=== PATIENT | male | born 1955 | race African-American/Black ===

== ENCOUNTER → 2020-02-23 | Day surgery (SDC) | payer MEDICARE, OTHER ==
[2020-02-19 13:21] LABS: BASOPHILS # (AUTO) 0.1 (0.0-0.1); BASOPHILS % 0.8 % (0.0-1.0); EOSINOPHILS # (AUTO) 0.2 (0.0-0.4); EOSINOPHILS % 3.1 % (0.0-6.0); HEMOGLOBIN 12.9 g/dL (14.0-18.0); LYMPHOCYTES # (AUTO) 1.8 (1.0-3.2); LYMPHOCYTES % 28.3 % (18.0-39.1); MEAN CORPUSCULAR HEMOGLOBIN 26.1 pg (28-32); MEAN CORPUSCULAR HGB CONC 30.7 g/dL (31-35); MONOCYTES % 15.2 % (4.4-11.3); NEUTROPHILS # (AUTO) 3.4 (2.1-6.9); NEUTROPHILS % 52.4 % (38.7-80.0); PLATELET COUNT 212 x10e3/uL (140-360); RED BLOOD COUNT 4.94 x10e6/uL (4.3-5.7); RED CELL DISTRIBUTION WIDTH 15.6 % (11.7-14.4)
[2020-02-19 13:54] LABS: ALANINE AMINOTRANSFERASE 16 IU/L (0-55); ALBUMIN 4.1 g/dL (3.5-5.0); ALBUMIN/GLOBULIN RATIO 1.2 (0.8-2.0); ALKALINE PHOSPHATASE 81 IU/L (40-150); ANION GAP 13.8 mmol/L (8-16); BLOOD UREA NITROGEN 14 mg/dL (7-26); BUN/CREATININE RATIO 11 (6-25); CALCIUM 9.9 mg/dL (8.4-10.2); CARBON DIOXIDE 24 mmol/L (22-29); CHLORIDE 107 mmol/L (98-107); CREATININE, SERUM 1.26 mg/dL (0.72-1.25); EST GLOMERULAR FILTRATION RATE > 60 ML/MIN (60-); GLUCOSE 116 mg/dL (74-118); POTASSIUM 3.8 mmol/L (3.5-5.1); SODIUM 141 mmol/L (136-145)
--- NOTE | 2020-02-19 19:00 | NUR ---
1900pm Preop interview completed and pt aware of importance to maintain Covid precautions,aware of importance to notify Md and CCL if any symptoms occur.Aware of importance to stop Xarelto on February 19. Will take Bp med in am of procedure and hold other meds. Carlee will be delivery driver in day of procedure.Knows importance to Arrive Saturday 1030am for Feb 22 and remain NPO. araceli/rn
[~2020-02-23] VITALS: Ht 195.6 cm; Wt 106.6 kg
[~2020-02-23] MED LIST: ALPRAZOLAM 0.5 MG TAB ONE; AMLODIPINE BESY10 MG PO; ATORVASTATIN CA20 MG PO; CARVEDILOL12.5 MG PO; CARVEDILOL3.125 MG PO; CELEBREX200 MG PO; DIPHENHYDRAMINE HCL 25 MG CAP ONE; FENTANYL CITRATE/PF 100MCG/2 ML INJ ONE; GLIMEPIRIDE2 MG PO; HEPARIN SOD/SOD CHLORIDE 2,000 ML ONE; IOPAMIDOL 370 MG/ML 200 ML INFUS..BTL INJ ONE; LIDOCAINE HCL 2% LOCAL 20 ML VIAL ONE; METFORMIN HCL500 M2 PO; METFORMIN HCL500 MG PO; MIDAZOLAM HCL 2 MG/2 ML VIAL ONE; MONTELUKAST SOD10 MG PO; PIOGLITAZONE HC45 MG PO; PROAIR RESPICL90 MCG IH; SODIUM CHLORIDE 0.9% 1000ML 1,000 ML ONE; TIZANIDINE HCL4 M1 PO; VERAPAMIL HCL 2.5 MG/ML 2 ML VIAL ONE; WIXELA 250-501 EACH INH; XARELTO10 MG PO; XARELTO15 MG PO; ZETIA10 MG PO; [UNRECOGNIZED DRUG - OTHER] IH
[2020-02-23 13:30] VITALS: BP 143/89
--- NOTE | 2020-02-23 13:30 | NUR ---
1330pm RECEIVING NOTE [employer] DEPT............................................................... Bedside report received from Yulia CEDENO. Identifierx2. Alert oriented and appropriate, PERRLA, respirations even and unlabored to room air. Pulses x4 extremities equal and strong. Pedal pulses PT/DP and marked. Cap fill brisk < 3 sec. Rt TR band site No gross issues pain,pallor pressure or dysrhythmia.Tr band 14cc ok to reduce at 1400pm. Skin warm and dry integrity appears D/I.IV 20g to left ac, presents healthy w/o s/s of infiltration or complaint. Abdomen soft and supple. pt offered toileting, denies need to urinate or defecate. No personal affects with patient. Family at bedside. Pt and family verbalizes understanding of POC. Currently w/o complaint of pain or need. ds/rn
--- NOTE | 2020-02-23 13:38 | Operative Report ---
DATE OF PROCEDURE: 02/23/2020 SURGEON: Owen Harvey MD INDICATIONS: Coronary artery disease, abnormal stress test. PROCEDURES PERFORMED: 1. Ultrasound-guided access in the right radial artery with sheath placement. 2. Conscious sedation administration, hemodynamic and neurological monitoring and recovery by quality assurance/r&d lab technician RN, supervision by , 35 minutes. 3. Left heart catheterization, selective coronary angiography. 4. Deployment of right wrist TR band. COMPLICATIONS: None. RECOMMENDATIONS: Medical therapy. DESCRIPTION OF PROCEDURE: Access was obtained in the right radial artery using ultrasound guidance. Image storage was performed. A 5-Green[place]ic sheath was placed. The patient was 6 feet 5 inches tall and 125 cm. Multipurpose 5-Greenlandic catheter was used to engage the left and right coronaries respectively. Minimal coronary artery disease, 10% to 20% luminal stenosis. Excellent flow in all vessels. No critical stenosis or occlusions were noted. LV end-diastolic pressure is normal. No gradient across the aortic valve on pullback. Right wrist TR band applied. The patient discharged home the same day. MD MO Anguiano/MODL /[id number]
[2020-02-23 13:45] VITALS: BP 126/68
[2020-02-23 14:00] VITALS: BP 120/77
--- NOTE | 2020-02-23 14:00 | NUR ---
1400pm RADIAL Compression removal: Initial Cuff volume 14 cc 1400pm -2cc Removed No hematoma/bleeding noted with normal neurovascular function. 1415pm -2cc Removed No hematoma/ bleeding noted with normal neurovascular function. 1430pm -5cc Removed No hematoma/bleeding noted with normal neurovascular function. 1445 -5cc Removed No hematoma/ bleeding noted with normal neurovascular function. Air removal completed. Stasis achieved sterile 2x2,Tegaderm, Coban dressing No hematoma, bleeding noted with normal neurovascular function. Wrist splint in place. Pt instructed on POC. Ds/Rn
[2020-02-23 14:15] VITALS: BP 126/76
[2020-02-23 14:30] VITALS: BP 120/70
[2020-02-23 14:45] VITALS: BP 140/76
--- NOTE | 2020-02-23 14:45 | NUR ---
1445pm [employer] OFFICER RECOV[employer] DISCHARGE NURSING NOTE Pt meets DC criteria. Rt TR band sited assessed for s/s of complication and presence of hematoma. Skin warm, dry, no discolor, and pulses present. IV removed from left ac Distal tip appears intact. VS WNL. Pt denies pain, sob, or need at this time. Family at bedside. Review of discharge paperwork and follow up instructions. verbalized understanding. Pt to wheelchair and transported to front of hospital. Transferred to private vehicle under own strength w/o incident with DC paperwork in hand. - araceli/neo
== END | disposition home or self-care (01) ==
LOC: CATH LAB 09:59
PROVIDERS: ATTEND Internal Medicine Interventional Cardiology
DX: I25.118 Atherosclerotic heart disease of native coronary artery with other forms of angina pectoris (principal); I82.412 Acute embolism and thrombosis of left femoral vein; R94.39 Abnormal result of other cardiovascular function study; I87.2 Venous insufficiency (chronic) (peripheral); E78.5 Hyperlipidemia, unspecified; I10 Essential (primary) hypertension; J45.909 Unspecified asthma, uncomplicated; Z01.812 Encounter for preprocedural laboratory examination; Z11.59 Encounter for screening for other viral diseases; Z79.02 Long term (current) use of antithrombotics/antiplatelets; Z79.84 Long term (current) use of oral hypoglycemic drugs; Z68.30 Body mass index [BMI] 30.0-30.9, adult
CPT/HCPCS: 36415; 76937; 80053; 85025; 93454; C1769; C1887 ×2; J2001; J2250; J3010; J7030; Q9967; U0002; 99152